=== PATIENT | male | born 1995 | race Caucasian/White ===

== ENCOUNTER 2020-01-10 12:43 | Emergency (ER) | payer OTHER, SELFPAY ==
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
[2020-01-10 12:56] VITALS: BP 156/83; PULSE 87; RESP 18; TEMP 37.7; O2SAT 100
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
[2020-01-10 13:21] VITALS: BP 156/83; PULSE 87; RESP 18; TEMP 37.7; O2SAT 100
--- NOTE | 2020-01-10 14:00 | PC.NURSE ---
1328-- placed pt in the shoulder immobilizer and pt wasnt able to tolerate it, and states that he has no help at home to get it on or off, [employer] notified and order changed to arm sling. which pt tolerated very well.
== END 2020-01-10 13:40 | disposition home or self-care (01) ==
PROVIDERS: Emergency Provider Nurse Practitioner
DX: S42.025A Nondisplaced fracture of shaft of left clavicle, initial encounter for closed fracture (principal); V18.4XXA Pedal cycle driver injured in noncollision transport accident in traffic accident, initial encounter
CPT/HCPCS: 73000; 73030; 99214; A4565; G0463